=== PATIENT | female | born 1995 | race Two or more races ===

== ENCOUNTER 2021-01-05 09:22 | Emergency (ER) | payer BC, OTHER ==
[~2021-01-05] VITALS: Ht 154.9 cm; Wt 70.3 kg
[2021-01-05 10:09] VITALS: BP 124/73
== END 2021-01-05 11:11 | disposition home or self-care (01) ==
LOC: ER 09:22
DX: S56.811A Strain of other muscles, fascia and tendons at forearm level, right arm, initial encounter (principal); V49.49XA Driver injured in collision with other motor vehicles in traffic accident, initial encounter; Y93.89 Activity, other specified; Y92.488 Other paved roadways as the place of occurrence of the external cause; Y99.8 Other external cause status
CPT/HCPCS: 73090